=== PATIENT | female | born 1955 | race Two or more races ===

== ENCOUNTER 2016-10-10 03:52 | Emergency (ER) | payer BC, OTHER ==
[~2016-10-10] VITALS: Ht 153 cm; Wt 107.0 kg
[~2016-10-10 03:52] MED LIST: AMBIEN CR6.25 MG PO; HUMULIN R100 UNIT/1 IJ; KEFLEX500 MG PO; LISINOPRIL10 MG PO; MACROBID 100 M100 MG PO; PHENAZOPYRIDIN200 MG PO; PROTONIX40 MG PO; TIZANIDINE HCL4 MG PO; TRAMADOL HCL50 MG PO; VICODIN 5-5001 EACH PO
--- NOTE | 2016-10-10 04:26 | Emergency Room Report ---
History of Present Illness General Chief Complaint: Abdominal Pain Source: Patient Present Illness HPI This is a 61-year-old female with multiple abdominal surgery including hernia repair, bunionectomy, cholecystectomy. She presents with chief complaint of epigastric abdominal pain for last 2 days. Radiating to the back. She has nausea and vomiting. Worse with eating. Pain is 9/10. No diarrhea. She says she is constipated. Allergies: Coded Allergies: No Known Allergies (Verified Allergy, Unknown, 08/14/09) Patient History Past Medical History: see triage record, old chart reviewed Past Surgical History: appy, negro, other Pertinent Family History: none Social History: Denies: smoking Last Menstrual Period: 1991 Now: No Immunizations: other Reviewed Nursing Documentation: PMH: Agreed, PSxH: Agreed Nursing Documentation-PMH Past Medical History: No History, Except For Hx Hypertension: Yes Hx Diabetes: Yes Hx Neurological Problems: Yes Review of Systems Eye: Denies: blurred vision, eye pain ENT: Denies: ear pain, nose congestion, throat swelling Respiratory: Denies: cough, shortness of breath Cardiovascular: Denies: chest pain, palpitations Gastrointestinal: Reports: abdominal pain, nausea, vomiting, Denies: diarrhea Musculoskeletal: Denies: back pain, joint pain Skin: Denies: rash Neurological: Denies: headache, numbness Endocrine: Denies: increased thirst, increased urine Hematologic/Lymphatic: Denies: easy bruising All Other Systems: negative except mentioned in HPI Physical Exam Vital Signs Date Time Temp Pulse Resp B/P Pulse Ox O2 Delivery O2 Flow Rate FiO2 10/10/16 04:08 71 20 92 Room Air vitals unremarkable Sp02 EP Interpretation: reviewed, normal General Appearance: well appearing, no apparent distress, alert, obese Head: normocephalic, atraumatic Eyes: bilateral eye EOMI, bilateral eye PERRL ENT: hearing grossly normal, normal pharynx Neck: full range of motion, supple, no meningismus Respiratory: chest non-tender, lungs clear, normal breath sounds Cardiovascular #1: regular rate, rhythm, no murmur Gastrointestinal: no mass, no organomegaly, no bruit, non-distended, tenderness - Epigastric, decreased bowel sounds Musculoskeletal: back normal, gait/station normal, normal range of motion Psychiatric: mood/affect normal Skin: warm/dry Medical Decision Making Diagnostic Impression: Primary Impression: Abdominal pain Qualified Codes: R10.13 - Epigastric pain Additional Impression: Morbid obesity with BMI of 45.0-49.9, adult ER Course Patient present with abdominal pain. No evidence of any obstruction. Differential include peptic ulcer disease/gastritis/H. pylori infection. This may also be referred pain from degenerative disc disease. Lab Results Impression labs normal CT/MRI/US Diagnostic Results CT/MRI/US Diagnostic Results : Imaging Test Ordered: CT abdomen and pelvis Impression read by radiologist. No obstruction. Last Vital Signs Date Time Temp Pulse Resp B/P Pulse Ox O2 Delivery O2 Flow Rate FiO2 10/10/16 04:08 71 20 92 Room Air Status: improved Disposition: HOME, SELF-CARE Condition: Stable Scripts Omeprazole Magnesium (PRILOSEC OTC) 20 Mg Tablet. 20 MG ORAL DAILY, #30 TAB Prov: GUIDO PILLAI M.D. 10/10/16 Hydrocodone/Acetaminophen 5-325* (HYDROCODONE/ACETAMINOPHEN 5-325*) 1 Each Tablet 1 TAB ORAL Q6H Y for For Pain, #30 TAB 0 Refills Prov: GUIDO PILLAI M.D. 10/10/16 Patient Instructions: Abdominal Pain, Adult Additional Instructions: Followup with Your DrMarc in 2 to 3 days. Return if symptom worsen. GUIDO PILLAI M.D. October 10, 2016 04:26
[2016-10-10] MEDS ORDERED: HYDROmorphone 1mg/ml Carpuject IVP ONE ×2 (04:30→06:30)
[2016-10-10] MEDS ORDERED: Tubing IV Cassette IV ONE (04:44)
[2016-10-10 05:05] VITALS: BP 148/61
[2016-10-10 05:13] LABS: APPEARANCE,URINE CLEAR; BASOPHILS % (AUTO) 1.5 % (0.0-2.0); EOSINOPHILS % (AUTO) 1.7 % (0.0-3.0); KETONES,URINE NEGATIVE (NEGATIVE); LEUKOCYTE ESTERASE ,URINE 2+ (NEGATIVE); LYMPHOCYTES % (AUTO) 27.6 % (20.0-45.0); MEAN CORPUSCULAR HEMOGLOBIN 31.2 PG (27.0-31.0); MEAN CORPUSCULAR HGB CONC 33.5 G/DL (32.0-36.0); MEAN CORPUSCULAR VOLUME 93 FL (80-99); MONOCYTES % (AUTO) 5.7 % (1.0-10.0); NEUTROPHILS % (AUTO) 63.5 % (45.0-75.0); NITRITE,URINE NEGATIVE (NEGATIVE); PH,URINE 5 (4.5-8.0); PLATELET COUNT 324 K/UL (150-450); PROTEIN,URINE 1+ (NEGATIVE); RED BLOOD COUNT 4.09 M/UL (4.20-5.40); RED CELL DISTRIBUTION WIDTH 12.2 % (11.6-14.8); UROBILINOGEN,URINE NORMAL MG/DL (0.0-1.0); WHITE BLOOD COUNT 7.5 K/UL (4.8-10.8)
[2016-10-10 05:24] LABS: BACTERIA,URINE FEW /HPF; RBC,URINE 0-2 /HPF (0 - 2); SQUAMOUS EPITHELIAL CELL,UR FEW /LPF (NONE/OCC); WBC,URINE 15-20 /HPF (0 - 2)
[2016-10-10 05:28] LABS: INR 0.9 (0.9-1.1); PROTHROMBIN TIME 9.4 SEC (9.30-11.50)
[2016-10-10 05:32] LABS: ALANINE AMINOTRANSFERASE 30 U/L (3-33); ALBUMIN/GLOBULIN RATIO 1.4 (1.0-2.7); ANION GAP 14 (5-15); ASPARTATE AMINO TRANSFERASE 18 U/L (5-40); CARBON DIOXIDE 25 mEQ/L (20-30); CHLORIDE 102 mEQ/L (98-107); CREATININE 0.7 mg/dL (0.5-0.9); GLOMERULAR FILTRATION RATE > 60 mL/min (>60); HEMOLYSIS 2; LIPASE 29 U/L (< 60); POTASSIUM 3.8 mEQ/L (3.4-4.9); SODIUM 141 mEQ/L (135-145); TOTAL PROTEIN 6.6 g/dL (6.6-8.7)
[2016-10-10] MEDS ORDERED: LYRICA75 M1 ORAL (05:32)
[2016-10-10] MEDS ORDERED: PROPRANOLOL HCL40 MG ORAL (05:32)
[2016-10-10] MEDS ORDERED: TRAMADOL HCL50 MG ORAL (05:32)
[2016-10-10] MEDS ORDERED: GABAPENTIN300 MG ORAL (05:32)
[2016-10-10] MEDS ORDERED: JANUVIA25 MG ORAL (05:32)
[2016-10-10] MEDS ORDERED: PRISTIQ ER50 MG PO (05:32)
[2016-10-10] MEDS ORDERED: MORPHINE S10 MG/5 ML ORAL (05:32)
[2016-10-10] MEDS ORDERED: DICLOFENAC SODI25 MG ORAL (05:32)
[2016-10-10] MEDS ORDERED: LORAZEPAM1 MG ORAL (05:32)
[2016-10-10] MEDS ORDERED: HYDROCODON-ACE1 EA15 ORAL (06:27)
[2016-10-10] MEDS ORDERED: PRILOSEC OTC20 MG ORAL (06:27)
[2016-10-10] MEDS ORDERED: Pantoprazole Inj IVP ONE (06:30)
[2016-10-10 06:42] VITALS: BP 102/54
[2016-10-10 06:47] VITALS: BP 102/54
--- NOTE | 2016-10-10 11:07 | Diagnostic Imaging Report ---
Indication: Abdominal pain Technique: Continuous helical transaxial imaging of the abdomen and pelvis was obtained from the lung bases to the pubic symphysis during intravenous contrast administration. Coronal 2-D reformats were also obtained. Study obtained in a Siemens sensation [address] Total Dose length Product (DLP): [address] Dose Index Volume (CTDIvol): 20 mGy Comparison: None Findings: Minimal groundglass opacity/reticulation medial posterior right lung base. Gallbladder is absent. No abnormalities of the liver or spleen definitely identified. Small cyst noted in the kidneys bilaterally. Aorta is normal caliber. Calcifications anterior to the psoas muscle likely phleboliths. Small bilateral inguinal hernias are present. The urinary bladder is nondistended. No free fluid, free air or evidence of bowel obstruction. Accessory spleen noted. This slightly linear hypodensity in the left kidney nonspecific. Uterus is absent. Appendix is not identified. No secondary signs of appendicitis identified. Impression: No acute findings identified. Bilateral renal cysts. Other renal hypodensities are too small to characterize. Status post hysterectomy Status post cholecystectomy. Small bilateral inguinal hernias containing fat. Dr. chandler has communicated the preliminary results to the Emergency Department. There are no significant discrepancies. The CT scanner at [facility] is accredited by the [employer] and the scans are performed using dose optimization techniques as appropriate to a performed exam including Automatic Exposure control.
== END 2016-10-10 06:45 | disposition home or self-care (01) ==
LOC: EMR 04:25
DX: R10.13 Epigastric pain (principal); R11.2 Nausea with vomiting, unspecified; E66.01 Morbid (severe) obesity due to excess calories; Z68.42 Body mass index [BMI] 45.0-49.9, adult; K59.00 Constipation, unspecified; E11.9 Type 2 diabetes mellitus without complications; I10 Essential (primary) hypertension
CPT/HCPCS: 36415; 74177; 80053; 81003; 83690; 85025; 85610; 85730; 87086; 96360; 96374; 96375; 99284; C9113; J1170; J2405; Q9967

== ENCOUNTER 2016-12-15 16:54 | Outpatient (CLI) | payer OTHER ==
[~2016-12-15 16:54] MED LIST changes: +DICLOFENAC SODI25 MG ORAL; +GABAPENTIN300 MG ORAL; +HYDROCODON-ACE1 EA15 ORAL; +JANUVIA25 MG ORAL; +LORAZEPAM1 MG ORAL; +LYRICA75 M1 ORAL; +MORPHINE S10 MG/5 ML ORAL; +PRILOSEC OTC20 MG ORAL; +PRISTIQ ER50 MG PO; +PROPRANOLOL HCL40 MG ORAL; +TRAMADOL HCL50 MG ORAL
--- NOTE | 2016-12-16 10:57 | Diagnostic Imaging Report ---
Indication: Neck pain Technique: MRI examination of the cervical spine was performed in a 1.5 [place] magnet. Sequences obtained include sagittal and axial T1 and T2 fast spin echo, and sagittal STIR. No IV gadolinium was given Comparison: none Findings: The spinal cord appears normal within the cervical spine. There is no Chiari malformation. There is considerable artifact in the upper part of the thoracic spine. Magnetic susceptibility artifact emanating from the anterior aspects of the vertebral bodies at C5, C6 and C7 associated with anterior fusion hardware. There is apparent interbody fusion of C5-6. The C6-7 disc is still visualized. There is no evidence of central spinal stenosis or evidence of neural foraminal narrowing. Alignment of the cervical spine appears normal. No epidural or other abnormal fluid collections or soft tissue swelling identified. Bone marrow signal as visualized appears normal. Impression: Anterior cervical fusion C5-C7.
--- NOTE | 2016-12-16 12:09 | Diagnostic Imaging Report ---
Indication: CVA Technique: 2-D [id number] of the extracranial carotid arteries below the skull base performed. No gadolinium given. Comparison: None Findings: There is considerable motion related image degradation resulting in a nondiagnostic exam. The proximal portions of both internal carotid arteries are poorly demonstrated and appear to show only patchy flow related enhancement. Whether these areas represent high grade stenoses or artifact is anyone's guess. Similarly, there are portions of the common carotid arteries that show no flow. Again this could be artifactual. Images of both vertebral arteries are equally degraded. In general, none of the proximal aspects of the vertebral arteries or the common carotid arteries are well demonstrated. Impression: Nondiagnostic study of the extracranial carotid or vertebral arteries. Further evaluation with duplex Doppler carotid ultrasound and/or CTA is recommended.
== END 2016-12-15 18:54 | disposition home or self-care (01) ==
LOC: MRI 16:54
DX: M54.2 Cervicalgia (principal); M43.22 Fusion of spine, cervical region
CPT/HCPCS: 70547; 72141

== ENCOUNTER 2017-05-21 08:44 | Emergency (ER) | payer OTHER ==
[~2017-05-21] VITALS: Ht 152.4 cm; Wt 108.9 kg
[2017-05-21 08:51] VITALS: BP 141/77
[2017-05-21] MEDS ORDERED: SUMATRIPTAN20 MG PO (09:00)
[2017-05-21] MEDS ORDERED: VITAMIN D1000 UNI1 ORAL (09:00)
[2017-05-21] MEDS ORDERED: [UNRECOGNIZED DRUG - OTHER] (09:00)
[2017-05-21] MEDS ORDERED: NORCO 5-325 TA1 EAC1 ORAL (09:00)
[2017-05-21] MEDS ORDERED: Sodium Chloride 500ML 500 ML IV ONE (09:06)
[2017-05-21] MEDS ORDERED: Ketorolac 30mg Inj IV ONE (09:15)
[2017-05-21] MEDS ORDERED: MICARDIS80 MG ORAL (09:32)
[2017-05-21] MEDS ORDERED: HYDROCHLOROTHIA25 MG ORAL (09:32)
[2017-05-21] MEDS ORDERED: CARAFATE1 G1 ORAL (09:32)
[2017-05-21] MEDS ORDERED: NOVOLIN N100 UNIT/1 SUBQ (09:32)
[2017-05-21] MEDS ORDERED: PANTOPRAZOLE SO40 MG ORAL (09:32)
[2017-05-21] MEDS ORDERED: DICYCLOMINE HCL10 MG PO (09:32)
[2017-05-21] MEDS ORDERED: REGULAR INSULIN SS (09:32)
[2017-05-21] MEDS ORDERED: JANUVIA25 MG ORAL (09:32)
--- NOTE | 2017-05-21 09:40 | Emergency Room Report ---
History of Present Illness General Chief Complaint: Vomiting Source: Patient Present Illness HPI Patient presents with reports of vomiting She reports diffuse bodyaches Patient had recent right-sided shoulder surgery Sounds to be laparoscopic rotator cuff At any other facility about 10 days ago There was apparently some complications the patient was in the hospital for about 4 days with respiratory discomfort Patient had general anesthesia At this time patient reports that she had been doing better 3 days ago she began having increased nausea and vomiting denies any abdominal pain specifically denies any obvious fevers denies any chest pain or shortness of breath She has not been able to take her pain medication or other medication secondary to the vomiting Patient has had a mild cough since discharge Allergies: Coded Allergies: No Known Allergies (Verified Allergy, Unknown, 08/14/09) Patient History Past Medical History: see triage record Pertinent Family History: none Reviewed Nursing Documentation: PMH: Agreed, PSxH: Agreed Nursing Documentation-PMH Hx Hypertension: Yes Hx Diabetes: Yes Hx Gastrointestinal Problems: Yes - gastritis, gall bladder removal Hx Neurological Problems: Yes - Fibromyalgia Hx Cerebrovascular Accident: Yes - 2006, hemiplegia left side Review of Systems All Other Systems: negative except mentioned in HPI Physical Exam Vital Signs Date Time Temp Pulse Resp B/P (MAP) Pulse Ox O2 Delivery O2 Flow Rate FiO2 05/21/17 08:45 98.4 91 24 124/78 100 Room Air Sp02 EP Interpretation: reviewed, normal General Appearance: no apparent distress Head: normocephalic, atraumatic Eyes: bilateral eye PERRL, bilateral eye EOMI ENT: hearing grossly normal, normal pharynx, TMs + canals normal, uvula midline Neck: full range of motion, supple, no meningismus, no bony tend Respiratory: lungs clear, normal breath sounds, no rhonchi, no respiratory distress, no retraction, no accessory muscle use Cardiovascular #1: normal peripheral pulses, regular rate, rhythm, no edema, no gallop, no JVD, no murmur Gastrointestinal: normal bowel sounds, non tender, soft, no mass, no organomegaly, non-distended, no guarding, no hernia, no pulsatile mass, no rebound Genitourinary: no CVA tenderness Musculoskeletal: other - Sutures in place in the right upper shoulder likely from laparoscopic surgery, no erythema or edema no obvious fluctuance, Neurologic: oriented x3, responsive, indexer III-XII nml as tested, motor strength/ tone normal, sensory intact Psychiatric: mood/affect normal Skin: normal color, no rash, warm/dry, palpation normal Lymphatic: normal inspection, no adenopathy Medical Decision Making Diagnostic Impression: Primary Impression: Vomiting Additional Impression: Viral syndrome ER Course Patient is complex with multiple differentials Requiring blood work and imaging Patient had recent major procedure including general anesthesia Blood work at this time reveals a low white blood for count Possibly in line with a viral syndrome Patient does not appear septic or toxic Has done significantly better with acute intervention X-ray was also normal In discussion regarding possible inpatient versus outpatient patient states that she would prefer to have outpatient initial trial and that she feels significantly better Patient will return with any changes or concerns Labs Test 05/21/17 09:34 05/21/17 10:10 05/21/17 11:07 Sodium Level 138 MMOL/L (136-145) Potassium Level 3.7 MMOL/L (3.5-5.1) Chloride Level 102 MMOL/L (98-107) Carbon Dioxide Level 27 MMOL/L (21-32) Anion Gap 9 mmol/L (5-15) Blood Urea Nitrogen 6 mg/dL (7-18) Creatinine 0.6 MG/DL (0.55-1.30) Estimat Glomerular Filtration Rate > 60 mL/min (>60) Glucose Level 300 MG/DL (74-106) Calcium Level 8.0 MG/DL (8.5-10.1) Total Bilirubin 0.8 MG/DL (0.2-1.0) Aspartate Amino Transf (AST/SGOT) 73 U/L (15-37) Alanine Aminotransferase (ALT/SGPT) 62 U/L (12-78) Alkaline Phosphatase 87 U/L (46-116) Total Creatine Kinase 93 U/L (26-308) Creatine Kinase MB < 0.5 NG/ML (0.0-3.6) Creatine Kinase MB Relative Index 0.5 Troponin I 0.012 ng/mL (0.000-0.056) Total Protein 7.3 G/DL (6.4-8.2) Albumin 3.5 G/DL (3.4-5.0) Globulin 3.8 g/dL Albumin/Globulin Ratio 0.9 (1.0-2.7) Lipase 87 U/L (73-393) White Blood Count 3.2 K/UL (4.8-10.8) Red Blood Count 4.49 M/UL (4.20-5.40) Hemoglobin 12.9 G/DL (12.0-16.0) Hematocrit 40.6 % (37.0-47.0) Mean Corpuscular Volume 91 FL (80-99) Mean Corpuscular Hemoglobin 28.7 PG (27.0-31.0) Mean Corpuscular Hemoglobin Concent 31.6 G/DL (32.0-36.0) Red Cell Distribution Width 13.7 % (11.6-14.8) Platelet Count 330 K/UL (150-450) Mean Platelet Volume 6.3 FL (6.5-10.1) Neutrophils (%) (Auto) % (45.0-75.0) Lymphocytes (%) (Auto) % (20.0-45.0) Monocytes (%) (Auto) % (1.0-10.0) Eosinophils (%) (Auto) % (0.0-3.0) Basophils (%) (Auto) % (0.0-2.0) Differential Total Cells Counted 100 Neutrophils % (Manual) 60 % (45-75) Lymphocytes % (Manual) 25 % (20-45) Monocytes % (Manual) 9 % (1-10) Eosinophils % (Manual) 4 % (0-3) Basophils % (Manual) 2 % (0-2) Band Neutrophils 0 % (0-8) Platelet Estimate Adequate Platelet Morphology Normal Red Blood Cell Morphology Normal Urine Color Yellow Urine Appearance Clear Urine pH 7 (4.5-8.0) Urine Specific Marble 1.020 (1.005-1.035) Urine Protein 1+ (NEGATIVE) Urine Glucose (UA) 4+ (NEGATIVE) Urine Ketones 4+ (NEGATIVE) Urine Occult Blood Negative (NEGATIVE) Urine Nitrite Negative (NEGATIVE) Urine Bilirubin Negative (NEGATIVE) Urine Urobilinogen Normal MG/DL (0.0-1.0) Urine Leukocyte Esterase 1+ (NEGATIVE) Urine RBC 0-2 /HPF (0 - 2) Urine WBC 2-4 /HPF (0 - 2) Urine Squamous Epithelial Cells Few /LPF (NONE/OCC) Urine Amorphous Sediment Few /LPF (NONE) Urine Bacteria Few /HPF (NONE) Rhythm Strip Diag. Results EP Interpretation: yes Rate: 77 Rhythm: NSR, no PVC's, no ectopy Chest X-Ray Diagnostic Results Chest X-Ray Diagnostic Results : Chest X-Ray Ordered: Yes # of Views/Limited/Complete: 1 View Indication: Chest Pain EP Interpretation: Yes Interpretation: no consolidation, no effusion, no pneumothorax, no acute cardiopulmonary disease Impression: No acute disease Electronically Signed by: Deanna oBwman DO Last Vital Signs Date Time Temp Pulse Resp B/P (MAP) Pulse Ox O2 Delivery O2 Flow Rate FiO2 05/21/17 08:45 98.4 91 24 124/78 100 Room Air Status: improved Disposition: HOME, SELF-CARE Condition: Improved Scripts Metoclopramide Hcl* (REGLAN*) 10 Mg Tablet 10 MG ORAL BID, #12 TAB Prov: DEANNA BOWMAN D.O. 05/21/17 Referrals: [facility],REFERRING (PCP) Additional Instructions: Patient is provided with the discharge instructions notified to follow up with primary doctor in the next 2-3 days otherwise return to the er with any worsening symptoms. Please note that this report is being documented using [employer] technology. This can lead to erroneous entry secondary to incorrect interpretation by the dictating instrument. DEANNA BOWMAN D.O. May 21, 2017 09:40
--- NOTE | 2017-05-21 09:43 | Diagnostic Imaging Report ---
Indication: Shortness of breath Technique: XRAY Chest 1v Comparison: 03/04/2012 Findings: Heart size and mediastinal contours are within normal limits given technique. There is no focal consolidation, pneumothorax or pleural effusion. Degenerative changes noted in the thoracic spine. Osseous structures demonstrate no acute abnormality. Impression: No radiographic evidence of acute cardiopulmonary disease.
[2017-05-21 10:18] LABS: ANION GAP 9 mmol/L (5-15); CARBON DIOXIDE 27 MMOL/L (21-32); CHLORIDE 102 MMOL/L (98-107); CREATININE 0.6 MG/DL (0.55-1.30); GLOMERULAR FILTRATION RATE > 60 mL/min (>60); POTASSIUM 3.7 MMOL/L (3.5-5.1); SODIUM 138 MMOL/L (136-145)
[2017-05-21 10:23] LABS: MEAN CORPUSCULAR HEMOGLOBIN 28.7 PG (27.0-31.0); MEAN CORPUSCULAR HGB CONC 31.6 G/DL (32.0-36.0); MEAN CORPUSCULAR VOLUME 91 FL (80-99); MEAN PLATELET VOLUME 6.3 FL (6.5-10.1); PLATELET COUNT 330 K/UL (150-450); RED BLOOD COUNT 4.49 M/UL (4.20-5.40); RED CELL DISTRIBUTION WIDTH 13.7 % (11.6-14.8); WHITE BLOOD COUNT 3.2 K/UL (4.8-10.8)
[2017-05-21 10:28] VITALS: BP 147/63
[2017-05-21 10:31] LABS: ALANINE AMINOTRANSFERASE 62 U/L (12-78); ALBUMIN/GLOBULIN RATIO 0.9 (1.0-2.7); ASPARTATE AMINO TRANSFERASE 73 U/L (15-37); CKMB < 0.5 NG/ML (0.0-3.6); LIPASE 87 U/L (73-393); TOTAL PROTEIN 7.3 G/DL (6.4-8.2)
[2017-05-21 10:51] LABS: BAND NEUTROPHILS % (MANUAL) 0 % (0-8); BASOPHILS % (MANUAL) 2 % (0-2); EOSINOPHILS % (MANUAL) 4 % (0-3); LYMPHOCYTES % (MANUAL) 25 % (20-45); NEUTROPHILS % (MANUAL) 60 % (45-75); PLATELET ESTIMATE ADEQUATE; PLATELET MORPHOLOGY NORMAL; TOTAL CELLS COUNTED 100
[2017-05-21 11:21] LABS: APPEARANCE,URINE CLEAR; KETONES,URINE 4+ (NEGATIVE); LEUKOCYTE ESTERASE ,URINE 1+ (NEGATIVE); NITRITE,URINE NEGATIVE (NEGATIVE); PH,URINE 7 (4.5-8.0); PROTEIN,URINE 1+ (NEGATIVE); UROBILINOGEN,URINE NORMAL MG/DL (0.0-1.0)
[2017-05-21 11:41] LABS: AMORPHOUS SEDIMENT,UR FEW /LPF; BACTERIA,URINE FEW /HPF; RBC,URINE 0-2 /HPF (0 - 2); SQUAMOUS EPITHELIAL CELL,UR FEW /LPF (NONE/OCC)
[2017-05-21 12:32] VITALS: BP 156/94
[2017-05-21] MEDS ORDERED: REGLAN10 MG ORAL (12:38)
[2017-05-21 13:00] VITALS: BP 156/94
--- NOTE | 2017-05-22 19:16 | Cardiology Report ---
APPROVED REPORT EKG Measurement Heart [id number] Sinus tachycardia Otherwise normal ECG
== END 2017-05-21 13:00 | disposition home or self-care (01) ==
LOC: EMR 09:23
DX: R11.10 Vomiting, unspecified (principal); B34.9 Viral infection, unspecified; I10 Essential (primary) hypertension; E11.9 Type 2 diabetes mellitus without complications; Z90.49 Acquired absence of other specified parts of digestive tract; M79.7 Fibromyalgia; G81.94 Hemiplegia, unspecified affecting left nondominant side
CPT/HCPCS: 36415; 71010; 80053; 81003; 82550; 82553; 83690; 84484; 85007; 85025; 87040; 93005; 96361; 96374; 96375; 99284; J1885; J2405; J7040

== ENCOUNTER 2017-08-23 20:02 | Emergency (ER) | payer OTHER ==
[~2017-08-23] VITALS: Ht 152.4 cm; Wt 110.2 kg
[~2017-08-23 20:02] MED LIST changes: +CARAFATE1 G1 ORAL; +DICYCLOMINE HCL10 MG PO; +HYDROCHLOROTHIA25 MG ORAL; +MICARDIS80 MG ORAL; +NORCO 5-325 TA1 EAC1 ORAL; +NOVOLIN N100 UNIT/1 SUBQ; +PANTOPRAZOLE SO40 MG ORAL; +REGLAN10 MG ORAL; +REGULAR INSULIN SS; +SUMATRIPTAN20 MG PO; +VITAMIN D1000 UNI1 ORAL; +[UNRECOGNIZED DRUG - OTHER]
[2017-08-23 21:38] LABS: APPEARANCE,URINE CLEAR; BILIRUBIN, URINE NEGATIVE (NEGATIVE); COLOR,URINE PALE YELLOW; GLUCOSE, URINE (UA) NEGATIVE (NEGATIVE); KETONES,URINE NEGATIVE (NEGATIVE); LEUKOCYTE ESTERASE ,URINE 2+ (NEGATIVE); NITRITE,URINE NEGATIVE (NEGATIVE); PH,URINE 5 (4.5-8.0); PROTEIN,URINE NEGATIVE (NEGATIVE); UROBILINOGEN,URINE NORMAL MG/DL (0.0-1.0)
[2017-08-23] MEDS ORDERED: Albuterol ud Inhalation HHN ONE (22:00)
[2017-08-23] MEDS ORDERED: Ipratropium 0.02% Inh Soln 2.5ml UD HHN ONE (22:00)
--- NOTE | 2017-08-23 22:12 | Emergency Room Report ---
History of Present Illness General Chief Complaint: Female Urogenital Problems Source: Patient (Kris Bhatt MD) Source: Patient (Harley Amin M.D.) Present Illness HPI 61-year-old female presents ED for evaluation. Patient presenting with flank pain. Radiating to groin. She states approximately 2 weeks ago she was seen by her PMD for UTI. Was prescribed Bactrim and states she is completely prescription but symptoms persist. Notes burning urination. Pain is dull, 5 out of 10, radiating. Denies fevers or chills. Denies nausea or vomiting. Denies chest pain or shortness of breath. No other aggravating relieving factors. Denies any other associated symptoms (Kris Bhatt MD) Allergies: Coded Allergies: No Known Allergies (Verified Allergy, Unknown, 08/14/09) Patient History Past Medical History: HTN, GERD, CVA/TIA Past Surgical History: negro Social History: Denies: smoking, alcohol use, drug use Last Menstrual Period: none Now: No Immunizations: UTD Reviewed Nursing Documentation: PMH: Agreed; PSxH: Agreed (Kris Bhatt MD) Past Medical History: see triage record Past Surgical History: none Pertinent Family History: none Reviewed Nursing Documentation: PMH: Agreed; PSxH: Agreed (Harley Amin M.D. ) Nursing Documentation-PMH Hx Hypertension: Yes Hx Diabetes: Yes Hx Gastrointestinal Problems: Yes - gastritis, gall bladder removal Hx Neurological Problems: Yes - Fibromyalgia Hx Cerebrovascular Accident: Yes - 2006, hemiplegia left side (Kris Bhatt MD) Review of Systems All Other Systems: negative except mentioned in HPI (Kris Bhatt MD) Physical Exam Vital Signs Date Time Temp Pulse Resp B/P (MAP) Pulse Ox O2 Delivery O2 Flow Rate FiO2 08/23/17 20:20 97.5 85 18 129/83 99 Room Air 97.5 Sp02 EP Interpretation: reviewed, normal General Appearance: no apparent distress, alert, GCS 15, non-toxic, obese Head: normocephalic, atraumatic Eyes: bilateral eye normal inspection, bilateral eye PERRL ENT: hearing grossly normal, normal pharynx, no angioedema, normal voice Neck: full range of motion, supple/symm/no masses Respiratory: chest non-tender, lungs clear, normal breath sounds, speaking full sentences Cardiovascular #1: regular rate, rhythm, no edema Cardiovascular #2: 2+ carotid (R), 2+ carotid (L), 2+ radial (R), 2+ radial (L) , 2+ dorsalis pedis (R), 2+ dorsalis pedis (L) Gastrointestinal: normal bowel sounds, non tender, soft, non-distended, no guarding, no rebound Rectal: deferred Genitourinary: normal inspection, CVA tenderness (R), CVA tenderness (L) Musculoskeletal: back normal, gait/station normal, normal range of motion, non- tender Neurologic: alert, oriented x3, responsive, motor strength/tone normal, sensory intact, speech normal Psychiatric: judgement/insight normal, memory normal, mood/affect normal, no suicidal/homicidal ideation Reflexes: 3+ bicep (R), 3+ bicep (L), 3+ tricep (R), 3+ tricep (L), 3+ knee (R) , 3+ knee (L) Skin: normal color, no rash, warm/dry, well hydrated Lymphatic: no adenopathy (Kris Bhatt MD) Medical Decision Making Diagnostic Impression: Primary Impression: Dysuria ER Course I received signout from Dr. Bhatt 61-year-old female, recently had a UTI, continues to have some dysuria/burning on urination. No fever no chills. Has intermittent flank pain. States that she does have a history of kidney stones in the past. Patient has been awake and alert, calm, not in any pain, vital signs are normal. No nausea no vomiting. No hematuria. Dry CT performed, no acute abnormalities noted Repeat abdominal exam is soft and nontender Showed decision-making had with the patient and her daughter, decided to discharge patient with very strict return precautions. Was told to come back to the emergency room if she experiences worsening pain, nausea, vomiting, inability to eat or drink, fever or chills. Otherwise if urine culture is positive, they are told that they were related get a call from us Patient will be followed up with her primary care doctor in a week (Harley Amin M.D.) CT/MRI/US Diagnostic Results CT/MRI/US Diagnostic Results : Imaging Test Ordered: CT abdo pelvis Impression CT ABDOMEN & PELVIS Without Contrast: Minimal nodular infiltrate in the lingula and left lower lobe. Appendix not identified. No colitis or bowel obstruction. Fatty liver. Cholecystectomy. Hysterectomy. (Harley Amin M.D.) Last Vital Signs Date Time Temp Pulse Resp B/P (MAP) Pulse Ox O2 Delivery O2 Flow Rate FiO2 08/23/17 20:20 97.5 85 18 129/83 99 Room Air 97.5 (Kris Bhatt MD) Disposition: HOME, SELF-CARE Condition: Improved Kris Bhatt MD Aug 23, 2017 22:12 Harley Amin M.D. Aug 23, 2017 23:32
[2017-08-23 23:45] VITALS: BP 93/50
--- NOTE | 2017-08-24 09:26 | Diagnostic Imaging Report ---
Indication: Abdominal pain Technique: Spiral acquisitions obtained through the abdomen and pelvis. No oral contrast utilized, per emergency room physician request No IV contrast utilized, emergency room physician request.. Multiplanar reconstructions were generated. Total dose length product 1034 mGycm. CTDIvol(s) 19 mGy. Dose reduction achieved using automated exposure control Comparison: 01/09/2011 Findings: 6 the appendix is not visualized, but no findings to suggest acute appendicitis are evident. There are scattered small colonic diverticula. No evidence of diverticulitis. No small bowel distention. No free or loculated intraperitoneal air or fluid is evident. Distal esophagus, stomach, duodenum are unremarkable. The gallbladder is surgically absent. No biliary ductal dilatation. Lack of IV contrast limits assessment of the solid organs. The liver is diffusely mildly hypoattenuating. No focal abnormality. The pancreas is unremarkable. The spleen demonstrates an accessory splenule, is otherwise unremarkable. The adrenals, kidneys are unremarkable. The uterus is absent, presumably postsurgically. Gas bubbles are seen within the anterior abdominal wall subcutaneous fat, likely reflecting recent injections. The included lung bases demonstrate some scattered irregular opacities in the lateral left lower lobe periphery. The bones demonstrate mild degenerative proliferative changes of the lumbar spine. Impression: No acute process Small focal nodule infiltrate in the left lung base Fatty liver Evidence of prior cholecystectomy and hysterectomy -Agrees stat rad The CT scanner at [facility] is accredited by the [employer] and the scans are performed using protocols designed to limit radiation exposure to as low as reasonably achievable to attain images of sufficient resolution adequate for diagnostic evaluation.
== END 2017-08-23 23:45 | disposition home or self-care (01) ==
LOC: EMR 20:56
DX: R30.0 Dysuria (principal); R10.9 Unspecified abdominal pain; I10 Essential (primary) hypertension; E11.9 Type 2 diabetes mellitus without complications; Z87.19 Personal history of other diseases of the digestive system; K76.0 Fatty (change of) liver, not elsewhere classified; Z87.440 Personal history of urinary (tract) infections; Z87.442 Personal history of urinary calculi; Z90.49 Acquired absence of other specified parts of digestive tract; Z90.710 Acquired absence of both cervix and uterus
CPT/HCPCS: 74176; 81003; 96374; 99284

== ENCOUNTER 2018-10-05 07:26 | Emergency (ER) | payer OTHER ==
[~2018-10-05] VITALS: Ht 152.4 cm; Wt 107.0 kg
[2018-10-05 07:45] VITALS: BP 121/103
[2018-10-05] MEDS ORDERED: ZANTAC150 MG ORAL (07:54)
[2018-10-05] MEDS ORDERED: ASPIR 8181 MG ORAL (07:54)
[2018-10-05] MEDS ORDERED: CYMBALTA30 MG ORAL (07:54)
[2018-10-05] MEDS ORDERED: BUPROPION HCL100 M1 ORAL (07:54)
[2018-10-05 08:39] LABS: APPEARANCE,URINE CLEAR; BILIRUBIN, URINE NEGATIVE (NEGATIVE); COLOR,URINE PALE YELLOW; GLUCOSE, URINE (UA) 4+ (NEGATIVE); HEMATOCRIT 39.5 % (37.0-47.0); HEMOGLOBIN 13.7 G/DL (12.0-16.0); KETONES,URINE 1+ (NEGATIVE); LEUKOCYTE ESTERASE ,URINE 2+ (NEGATIVE); LYMPHOCYTES % (AUTO) 21.9 % (20.0-45.0); MEAN CORPUSCULAR VOLUME 87 FL (80-99); MONOCYTES % (AUTO) 3.8 % (1.0-10.0); NEUTROPHILS % (AUTO) 72.3 % (45.0-75.0); NITRITE,URINE NEGATIVE (NEGATIVE); PH,URINE 5 (4.5-8.0); PLATELET COUNT 322 K/UL (150-450); PROTEIN,URINE NEGATIVE (NEGATIVE); RED BLOOD COUNT 4.51 M/UL (4.20-5.40); RED CELL DISTRIBUTION WIDTH 11.5 % (11.6-14.8); UROBILINOGEN,URINE NORMAL MG/DL (0.0-1.0); WHITE BLOOD COUNT 8.2 K/UL (4.8-10.8)
[2018-10-05] MEDS ORDERED: Morphine Sulfate 4mg/ml Inj (IV USE ONLY) IVP ONE ×2 (08:45→09:15)
[2018-10-05 08:51] LABS: ANION GAP 11 mmol/L (5-15); BLOOD UREA NITROGEN 23 mg/dL (7-18); CALCIUM 8.8 MG/DL (8.5-10.1); CARBON DIOXIDE 24 MMOL/L (21-32); CHLORIDE 103 MMOL/L (98-107); POTASSIUM 3.4 MMOL/L (3.5-5.1); SODIUM 138 MMOL/L (136-145)
[2018-10-05 08:56] LABS: ALANINE AMINOTRANSFERASE 89 U/L (12-78); ALBUMIN 3.5 G/DL (3.4-5.0); ALKALINE PHOSPHATASE 97 U/L (46-116); ASPARTATE AMINO TRANSFERASE 68 U/L (15-37); BILIRUBIN,TOTAL 0.3 MG/DL (0.2-1.0)
--- NOTE | 2018-10-05 09:06 | Emergency Room Report ---
History of Present Illness General Chief Complaint: Lower Back Pain or Injury Source: Patient Present Illness HPI The patient states that she has a history of chronic low back pain. She has chronic arthritis. She is undergone cervical spinal fusion. She has had 2 rotator cuff surgeries of her shoulders. She also has bilateral knee arthritis but is not a surgical candidate secondary to her history of CVA x2 and DC x2. She states that she normally manages her back pain at home with [place], gabapentin and baclofen. She states that over the past 3 days she has been using his medications without relief. She states that the pain is in her low back midline. She denies weakness. She denies radiation of the pain. She denies tingling or numbness. She denies loss of bowel or bladder control. She denies recent illness. She denies fever or chills. She denies nausea or vomiting. She denies dysuria or hematuria. She has no other complaints. Allergies: Coded Allergies: No Known Allergies (Verified Allergy, Unknown, 08/14/09) Patient History Past Medical History: see triage record, DM, HTN, DC, CAD, CVA/TIA Past Surgical History: appy, negro, hysterectomy, other - Bilateral Rotator cuff repair. Cervical spinal fusion. Social History: Denies: smoking, alcohol use, drug use Now: No Reviewed Nursing Documentation: PMH: Agreed; PSxH: Agreed Nursing Documentation-PMH Past Medical History: No History, Except For Hx Hypertension: Yes Hx Diabetes: Yes Hx Gastrointestinal Problems: Yes - gastritis, gall bladder removal Hx Neurological Problems: Yes - Fibromyalgia Hx Cerebrovascular Accident: Yes - 2006, hemiplegia left side Review of Systems All Other Systems: negative except mentioned in HPI Physical Exam Vital Signs Date Time Temp Pulse Resp B/P (MAP) Pulse Ox O2 Delivery O2 Flow Rate FiO2 10/05/18 07:39 98.4 94 20 97 Room Air 10/05/18 07:45 121/103 Sp02 EP Interpretation: reviewed, normal General Appearance: no apparent distress, alert, GCS 15, non-toxic Head: normocephalic, atraumatic Eyes: bilateral eye normal inspection, bilateral eye PERRL ENT: hearing grossly normal, normal pharynx, no angioedema, normal voice Neck: full range of motion, supple/symm/no masses Respiratory: chest non-tender, lungs clear, normal breath sounds, no respiratory distress, no retraction, no accessory muscle use, speaking full sentences Cardiovascular #1: regular rate, rhythm, no edema Gastrointestinal: normal bowel sounds, non tender, soft, non-distended, no guarding, no rebound Rectal: deferred Musculoskeletal: normal range of motion, tender - TTP along the L-spine diffusely Neurologic: alert, oriented x3, responsive, motor strength/tone normal, sensory intact, speech normal Psychiatric: judgement/insight normal, memory normal, mood/affect normal, no suicidal/homicidal ideation Skin: normal color, no rash, warm/dry, well hydrated Medical Decision Making Diagnostic Impression: Primary Impression: Low back pain Additional Impression: UTI (urinary tract infection) ER Course This patient has a clinical presentation consistent with chronic low back pain. There are no red flags on physical exam or history that would make me concerned for underlying fracture. Therefore, I do not feel that I need to obtain imaging studies. Further, the patient has had a recent MRI within the past few months. The patient was identified to have disc bulges. There is no history of physical exam findings that would make me concerned for cauda equina. There is no evidence of compartment syndrome. There is no neurologic deficit. The patient was instructed on supportive home measures. Patient's urinalysis was slightly positive. The patient's blood sugar was over 300 but is known diabetic. The patient was educated on the importance of diabetes control. As a precaution, I will go ahead and place the patient on a course of antibiotics for urinary tract infection. No emergency medical condition was identified. Instructed to follow-up with her primary care physician for further pain management. The patient was given return precautions and followup instructions. Laboratory Tests Test 10/05/18 08:25 White Blood Count 8.2 K/UL (4.8-10.8) Red Blood Count 4.51 M/UL (4.20-5.40) Hemoglobin 13.7 G/DL (12.0-16.0) Hematocrit 39.5 % (37.0-47.0) Mean Corpuscular Volume 87 FL (80-99) Mean Corpuscular Hemoglobin 30.4 PG (27.0-31.0) Mean Corpuscular Hemoglobin Concent 34.8 G/DL (32.0-36.0) Red Cell Distribution Width 11.5 % (11.6-14.8) L Platelet Count 322 K/UL (150-450) Mean Platelet Volume 6.8 FL (6.5-10.1) Neutrophils (%) (Auto) 72.3 % (45.0-75.0) Lymphocytes (%) (Auto) 21.9 % (20.0-45.0) Monocytes (%) (Auto) 3.8 % (1.0-10.0) Eosinophils (%) (Auto) 1.0 % (0.0-3.0) Basophils (%) (Auto) 1.0 % (0.0-2.0) Urine Color Pale yellow Urine Appearance Clear Urine pH 5 (4.5-8.0) Urine Specific [place] 1.015 (1.005-1.035) Urine Protein Negative (NEGATIVE) Urine Glucose (UA) 4+ (NEGATIVE) H Urine Ketones 1+ (NEGATIVE) H Urine Blood Negative (NEGATIVE) Urine Nitrite Negative (NEGATIVE) Urine Bilirubin Negative (NEGATIVE) Urine Urobilinogen Normal MG/DL (0.0-1.0) Urine Leukocyte Esterase 2+ (NEGATIVE) H Urine RBC 0 /HPF (0 - 2) Urine WBC 5-10 /HPF (0 - 2) H Urine Squamous Epithelial Cells Few /LPF (NONE/OCC) Urine Bacteria Few /HPF (NONE) Sodium Level 138 MMOL/L (136-145) Potassium Level 3.4 MMOL/L (3.5-5.1) L Chloride Level 103 MMOL/L (98-107) Carbon Dioxide Level 24 MMOL/L (21-32) Anion Gap 11 mmol/L (5-15) Blood Urea Nitrogen 23 mg/dL (7-18) H Creatinine 1.0 MG/DL (0.55-1.30) Estimate Glomerular Filtration Rate 56.4 mL/min (>60) Glucose Level 328 MG/DL (74-106) H Calcium Level 8.8 MG/DL (8.5-10.1) Total Bilirubin 0.3 MG/DL (0.2-1.0) Aspartate Amino Transferase (AST) 68 U/L (15-37) H Alanine Aminotransferase (ALT) 89 U/L (12-78) H Alkaline Phosphatase 97 U/L (46-116) Total Protein 7.0 G/DL (6.4-8.2) Albumin 3.5 G/DL (3.4-5.0) Globulin 3.5 g/dL Albumin/Globulin Ratio 1.0 (1.0-2.7) Lipase 148 U/L (73-393) Last Vital Signs Date Time Temp Pulse Resp B/P (MAP) Pulse Ox O2 Delivery O2 Flow Rate FiO2 10/05/18 07:45 98.4 94 20 121/103 97 Room Air Status: improved Disposition: HOME, SELF-CARE Condition: Improved Referrals: NON PHYSICIAN (PCP) Patient Instructions: Back Pain, Adult, Low Back Sprain With Rehab-Sports[facility] Colleen Naranjo DO October 05, 2018 09:06
[2018-10-05] MEDS ORDERED: LIDODERM700 M1 TOPIC (09:07)
[2018-10-05] MEDS ORDERED: NITROFURANTOIN100 M2 ORAL (09:07)
[2018-10-05 11:06] VITALS: BP 135/89
== END 2018-10-05 11:09 | disposition home or self-care (01) ==
LOC: EMR 08:14
DX: M54.2 Cervicalgia (principal); N39.0 Urinary tract infection, site not specified; E11.9 Type 2 diabetes mellitus without complications; I10 Essential (primary) hypertension; M79.7 Fibromyalgia; I69.354 Hemiplegia and hemiparesis following cerebral infarction affecting left non-dominant side
CPT/HCPCS: 36415; 80053; 81003; 82962; 83690; 85025; 96361; 96374; 96376; 99284; J2270

== ENCOUNTER 2018-12-01 18:25 | Emergency (ER) | payer OTHER ==
[~2018-12-01] VITALS: Ht 152.4 cm; Wt 114.8 kg
[~2018-12-01 18:25] MED LIST changes: +ASPIR 8181 MG ORAL; +BUPROPION HCL100 M1 ORAL; +CYMBALTA30 MG ORAL; +LIDODERM700 M1 TOPIC; +NITROFURANTOIN100 M2 ORAL; +ZANTAC150 MG ORAL
--- NOTE | 2018-12-01 18:35 | NUR ---
ED Nurse Note: Pt tripped and fell on the street today around 1500, injured bilateral knee and R ankle. Pt walks with a walker. No head trauma or LOC. Pain 10/10 hussein. Applied wrap on R ankle prior to arrival. Scattering bruises noted on L knee and R lateral knee. AOx4, VSS. Will cont to monitor.
[2018-12-01 18:44] VITALS: BP 127/74
--- NOTE | 2018-12-01 19:06 | NUR ---
HAND-OFF: Report given to ILSA Cannon.
--- NOTE | 2018-12-01 20:32 | Diagnostic Imaging Report ---
EXAM: US Duplex Bilateral Lower Extremity Veins CLINICAL HISTORY: PAIN TECHNIQUE: Real-time duplex ultrasound scan of the bilateral lower extremity veins integrating B-mode two-dimensional vascular structure, Doppler spectral analysis, color flow Doppler imaging and compression. COMPARISON: No relevant prior studies available. FINDINGS: Right deep veins: Unremarkable. No DVT in the right common femoral, femoral, proximal deep femoral or popliteal veins. The veins demonstrate normal color flow, are normally compressible, with normal phasic flow and/or augmentation response. Right superficial veins: Unremarkable. No thrombus in the visualized right great saphenous vein. Left deep veins: Unremarkable. No DVT in the left common femoral, femoral, proximal deep femoral or popliteal veins. The veins demonstrate normal color flow, are normally compressible, with normal phasic flow and/or augmentation response. Left superficial veins: Unremarkable. No thrombus in the visualized left great saphenous vein. Soft tissues: No acute findings. No popliteal cyst. IMPRESSION: Normal bilateral lower extremity duplex venous ultrasound.
--- NOTE | 2018-12-01 20:45 | Diagnostic Imaging Report ---
EXAM: XR Right Ankle Complete, 3 or More Views CLINICAL HISTORY: TRAUMA TECHNIQUE: Frontal, lateral and oblique views of the right ankle. COMPARISON: No relevant prior studies available. FINDINGS: Bones/joints: No acute fracture or traumatic malalignment. Small Achilles enthesophyte and calcaneal heel spur. Soft tissues: Unremarkable. IMPRESSION: No acute findings.
--- NOTE | 2018-12-01 20:45 | Diagnostic Imaging Report ---
EXAM: XR Left Knee, 3 views CLINICAL HISTORY: TRAUMA TECHNIQUE: Three views of the left knee. COMPARISON: No relevant prior studies available. FINDINGS: Bones/joints: Tricompartment degenerative changes without evidence of acute fracture or traumatic malalignment. Soft tissues: Unremarkable. IMPRESSION: Tricompartment degenerative changes without evidence of acute fracture or traumatic malalignment.
--- NOTE | 2018-12-01 20:45 | Diagnostic Imaging Report ---
EXAM: XR Left Ankle Complete, 3 or More Views CLINICAL HISTORY: TRAUMA TECHNIQUE: Frontal, lateral and oblique views of the left ankle. COMPARISON: No relevant prior studies available. FINDINGS: Bones/joints: No acute fracture or traumatic malalignment. Degenerative changes noted about the ankle. Small calcaneal heel spur and Achilles enthesophyte. Soft tissues: Unremarkable. IMPRESSION: No acute findings.
--- NOTE | 2018-12-01 20:45 | Diagnostic Imaging Report ---
EXAM: XR Right Knee, 3 views CLINICAL HISTORY: TRAUMA TECHNIQUE: Three views of the right knee. COMPARISON: No relevant prior studies available. FINDINGS: Bones/joints: Tricompartment degenerative changes. No acute fracture or traumatic malalignment. Soft tissues: Unremarkable. IMPRESSION: Tricompartment degenerative changes. No acute fracture or traumatic malalignment.
--- NOTE | 2018-12-01 20:53 | Emergency Room Report ---
History of Present Illness General Chief Complaint: Multiple Trauma/Fall Source: Patient Present Illness HPI 63-year-old female with history of hypertension, diabetes, CVA and ME here complaining of bilateral ankle and knee pain after fall today. Patient was using her walker when she lost balance and twisted her right ankle rating the pain 7 out of 10 without radiation. Has not taken medication for pain. Denies calf tenderness, chest pain, shortness of breath, palpitation, nausea vomiting, dizziness and headache. Patient denies loss of consciousness and head injury. Patient reports that she had to strokes in 2017 and is currently on Plavix also had 3 heart attacks in 2017 and is currently under the care of denies history of DVT or pulmonary embolism. Patient is morbidly obese and is also on Latuda for fibromyalgia. Denies any tingling or numbness. Allergies: Coded Allergies: No Known Allergies (Verified Allergy, Unknown, 08/14/09) Patient History Past Medical History: see triage record Past Surgical History: none Pertinent Family History: unable to obtain Now: No Immunizations: UTD Nursing Documentation-PMH Past Medical History: No History, Except For Hx Hypertension: Yes Hx Diabetes: Yes Hx Gastrointestinal Problems: Yes - gastritis, gall bladder removal Hx Neurological Problems: Yes - Fibromyalgia Hx Cerebrovascular Accident: Yes - 2006, hemiplegia left side Review of Systems All Other Systems: negative except mentioned in HPI Physical Exam Vital Signs Date Time Temp Pulse Resp B/P (MAP) Pulse Ox O2 Delivery O2 Flow Rate FiO2 12/01/18 18:27 98.2 82 17 127/74 (91) 95 Room Air Sp02 EP Interpretation: reviewed, normal General Appearance: normal inspection, well appearing, no apparent distress, alert Head: normocephalic, atraumatic Eyes: bilateral eye normal inspection, bilateral eye PERRL ENT: normal ENT inspection, normal pharynx Neck: normal inspection, full range of motion, supple, no bony tend Respiratory: normal inspection, chest non-tender, normal breath sounds, no rhonchi, no wheezing Cardiovascular #1: normal inspection, normal peripheral pulses, regular rate, rhythm, no murmur, normal capillary refill Cardiovascular #2: 2+ dorsalis pedis (R), 2+ dorsalis pedis (L) Gastrointestinal: normal inspection, non tender, soft Rectal: deferred Genitourinary: no CVA tenderness Musculoskeletal: digits/nails normal, non-tender, no calf tenderness, swelling - Bilateral oncology and release Neurologic: normal inspection, alert, oriented x3 Psychiatric: normal inspection, judgement/insight normal, memory normal Skin: normal color, other - Minor ecchymosis of bilateral ankles Lymphatic: normal inspection, no adenopathy Medical Decision Making PA Attestation All my diagnosis and treatment plans were reviewed ad discussed with my supervising physician Dr. Ramirez Diagnostic Impression: Primary Impression: Ankle sprain Additional Impression: Knee contusion ER Course 63-year-old female with history of hypertension, diabetes, CVA and ME here complaining of bilateral ankle and knee pain after fall today. Patient was using her walker when she lost balance and twisted her right ankle rating the pain 7 out of 10 without radiation. Has not taken medication for pain. Denies calf tenderness, chest pain, shortness of breath, palpitation, nausea vomiting, dizziness and headache. Patient denies loss of consciousness and head injury. Patient reports that she had to strokes in 2017 and is currently on Plavix also had 3 heart attacks in 2017 and is currently under the care of denies history of DVT or pulmonary embolism. Patient is morbidly obese and is also on Latuda for fibromyalgia. Denies any tingling or numbness. Ddx considered but are not limited to: ankle sprain, ankle strain, ankle fracture, ankle contusion , knee sprain versus contusion versus fracture versus strain, DVT Vital signs: are WNL, pt. is afebrile H&PE are most consistent with: Bilateral knee contusion and right ankle sprain ORDERS: Ankle x-ray, knee x-ray, venous duplex ultrasound, Tylenol, Voltaren gel ED INTERVENTIONS: Derrek wrap, Tylenol DISCHARGE: At this time pt. is stable for d/c to home. Will provide printed patient care instructions, and any necessary prescriptions. Care plan and follow up instructions have been discussed with the patient prior to discharge. At this time patient is negative for DVT due to her history she was high risk for developing well however if negative patient return to the emergency room if chest pain shortness of breath follow-up with her primary care provider for referral to physical therapy use walker at all times Other X-Ray Diagnostic Results Other X-Ray Diagnostic Results #1: X-Ray ordered: Right ankle # of Views/Limited Vs Complete: 2 View Indication: Pain EP Interpretation: Yes PA Xray: Interpretation reviewed, by supervising , and agrees with findings. Interpretation: no dislocation, no soft tissue swelling, no fractures Impression: No acute disease Electronically Signed by: mara CULP Scribe Text FINDINGS: Bones/joints: No acute fracture or traumatic malalignment. Small Achilles enthesophyte and calcaneal heel spur. Soft tissues: Unremarkable. IMPRESSION: No acute findings. Other X-Ray Diagnostic Results #2: X-Ray ordered: Left ankle # of Views/Limited Vs Complete: 2 View Indication: Pain EP Interpretation: Yes PA Xray: Interpretation reviewed, by supervising MD, and agrees with findings. Interpretation: no dislocation, no soft tissue swelling, no fractures Impression: No acute disease Electronically Signed by: mara CULP Scribe Text FINDINGS: Bones/joints: No acute fracture or traumatic malalignment. Degenerative changes noted about the ankle. Small calcaneal heel spur and Achilles enthesophyte. Soft tissues: Unremarkable. IMPRESSION: No acute findings. Other X-Ray Diagnostic Results #3: X-Ray ordered: Right knee # of Views/Limited Vs Complete: 2 View Indication: Pain EP Interpretation: Yes PA Xray: Interpretation reviewed, by supervising MD, and agrees with findings. Interpretation: no dislocation, no soft tissue swelling, no fractures Impression: No acute disease Electronically Signed by: mara CULP Scribe Text FINDINGS: Bones/joints: Tricompartment degenerative changes. No acute fracture or traumatic malalignment. Soft tissues: Unremarkable. IMPRESSION: Tricompartment degenerative changes. No acute fracture or traumatic malalignment. Other X-Ray Diagnostic Results #4: X-Ray ordered: Left knee # of Views/Limited Vs Complete: 2 View Indication: Pain EP Interpretation: Yes PA Xray: Interpretation reviewed, by supervising MD, and agrees with findings. Interpretation: no dislocation, no soft tissue swelling, no fractures Impression: No acute disease Electronically Signed by: mara CULP Scribe Text FINDINGS: Bones/joints: Tricompartment degenerative changes without evidence of acute fracture or traumatic malalignment. Soft tissues: Unremarkable. IMPRESSION: Tricompartment degenerative changes without evidence of acute fracture or traumatic malalignment. CT/MRI/US Diagnostic Results CT/MRI/US Diagnostic Results : Imaging Test Ordered: roxy Duplex Bilateral lower extermities Impression FINDINGS: Right deep veins: Unremarkable. No DVT in the right common femoral, femoral, proximal deep femoral or popliteal veins. The veins demonstrate normal color flow, are normally compressible, with normal phasic flow and/or augmentation response. Right superficial veins: Unremarkable. No thrombus in the visualized right great saphenous vein. Left deep veins: Unremarkable. No DVT in the left common femoral, femoral, proximal deep femoral or popliteal veins. The veins demonstrate normal color flow, are normally compressible, with normal phasic flow and/or augmentation response. Left superficial veins: Unremarkable. No thrombus in the visualized left great saphenous vein. Soft tissues: No acute findings. No popliteal cyst. IMPRESSION: Normal bilateral lower extremity duplex venous ultrasound. Last Vital Signs Date Time Temp Pulse Resp B/P (MAP) Pulse Ox O2 Delivery O2 Flow Rate FiO2 12/01/18 20:41 98.2 12/01/18 18:44 82 17 127/74 95 Room Air Disposition: HOME, SELF-CARE Condition: Stable Scripts Diclofenac Sodium (VOLTAREN) 100 Gm Gel..gram. 2 GM TP TID, #100 GM Prov: Mara Diaz 12/01/18 Acetaminophen* (TYLENOL EXTRA STRENGTH*) 500 Mg Tablet 500 MG ORAL Q6H PRN for Mild Pain/Temp > 100.5, #30 TAB 0 Refills Prov: Mara Diaz 12/01/18 Referrals: NON PHYSICIAN (PCP) Patient Instructions: Ankle Sprain, [id number], Knee Pain, [id number] Additional Instructions: Take medication as directed follow-up with your primary care provider alternate between icing and heating the affected area physical therapy will help you Mara Diaz Dec 01, 2018 20:53
[2018-12-01] MEDS ORDERED: VOLTAREN100 G1 TP (20:55)
[2018-12-01] MEDS ORDERED: TYLENOL EXTRA500 MG ORAL (20:55)
[2018-12-01 21:25] VITALS: BP 132/72
--- NOTE | 2018-12-01 21:37 | NUR ---
ER Nurse Note: Pt seen, treated, medically cleared for discharge by ERMD. Discharge instuctions and prescriptions given with repeat verbalization by pt. Emphasized to follow up with primay care provider. All orders completed per ERMD orders. Pt a&ox4, VSS, no signs of distress. RT ankle wrapped, ice pack provided. ID band removed. Pt left with all belongings, left with own transportation.
== END 2018-12-01 21:25 | disposition home or self-care (01) ==
LOC: EMR 18:40
DX: M25.571 Pain in right ankle and joints of right foot (principal); S93.401A Sprain of unspecified ligament of right ankle, initial encounter; S80.02XA Contusion of left knee, initial encounter; S80.01XA Contusion of right knee, initial encounter; X50.1XXA Overexertion from prolonged static or awkward postures, initial encounter; Y92.9 Unspecified place or not applicable; E11.9 Type 2 diabetes mellitus without complications; I10 Essential (primary) hypertension; M79.7 Fibromyalgia; G81.94 Hemiplegia, unspecified affecting left nondominant side; Z90.49 Acquired absence of other specified parts of digestive tract; I25.2 Old myocardial infarction
CPT/HCPCS: 93970; 99284

== ENCOUNTER 2019-04-02 10:28 | Outpatient (CLI) | payer MEDICAID ==
[~2019-04-02] VITALS: Ht 152.4 cm; Wt 114.8 kg
[~2019-04-02 10:28] MED LIST changes: +TYLENOL EXTRA500 MG ORAL; +VOLTAREN100 G1 TP
[2019-04-02] MEDS ORDERED: ADMELOG SUBQ (13:53)
[2019-04-02] MEDS ORDERED: AMBIEN10 M1 ORAL (13:53)
[2019-04-02] MEDS ORDERED: MIRALAX17 G2 ORAL (13:53)
[2019-04-02] MEDS ORDERED: TRULICITY0.75 MG/0. SQ (13:53)
[2019-04-02] MEDS ORDERED: NITRO0.4 SL (13:53)
[2019-04-02] MEDS ORDERED: ATORVASTATIN CA40 MG ORAL (13:53)
[2019-04-02] MEDS ORDERED: Glargine SUBQ (13:53)
[2019-04-02] MEDS ORDERED: IBUPROFEN600 MG ORAL (13:53)
[2019-04-02] MEDS ORDERED: CLOPIDOGREL75 MG ORAL (13:53)
[2019-04-02] MEDS ORDERED: COLACE100 MG ORAL (13:53)
[2019-04-02 13:59] VITALS: BP 113/70
--- NOTE | 2019-04-02 18:15 | Consultation ---
DATE OF CONSULTATION: 04/02/2019 HISTORY: Complained of abdominal pain, on and off diarrhea, and constipation. PAST MEDICAL HISTORY: 1. Sleep apnea. 2. CVA. 3. Gallstones. 4. Hypertension. 5. Diabetes. 6. Depression. 7. Kidney stones. 8. GERD. 9. Coronary artery disease. PAST SURGICAL HISTORY: Appendectomy, hysterectomy, bowel resection, and cholecystectomy. MEDICATIONS: Please see medication reconciliation list. ALLERGIES: No known drug allergy. FAMILY HISTORY: No family history of GI malignancies. SOCIAL HISTORY: The patient denies any tobacco, alcohol, or drug abuse. REVIEW OF SYSTEMS: Positive for many things including abdominal pain, GERD, diarrhea and again constipation, nausea, and bloating. Her last colonoscopy in 2018. ASSESSMENT AND PLAN: This is a 63-year-old female with numerous medical problems. She has a lots of medication. She is taking NSAIDs. She is taking diclofenac. She is obese. She has diabetes for over 15 years and I explained to her these are all the medication she is taking and the diabetes for 15 years combination with liver gastroparesis, but we explains the nausea, the diarrhea, and constipation cyclic can be from the medications or can be simply from the irritable bowel syndrome. At this time, I reassured her there is no alarming sign and symptoms including weight loss or bleeding. She already had a colonoscopy in 2018 and endoscopy at the same time according to her, so we are not going to schedule that. I recommended her to lose weight, to exercise especially water exercises like walking in the water. I have . She is going to see a pier master next week, so we recommended to have a tight blood sugar control so the nausea from gastroparesis gets better. We also gave her 1 tab a day for probiotics and have her come back in 2 months for followup. Davon Rubio M.D. DR: CRISTOPHER JOB#: [id number] CC:
== END 2019-04-02 12:28 | disposition home or self-care (01) ==
LOC: PAN 10:28
DX: R10.9 Unspecified abdominal pain (principal); R19.7 Diarrhea, unspecified; K59.00 Constipation, unspecified; G47.30 Sleep apnea, unspecified; Z86.73 Personal history of transient ischemic attack (TIA), and cerebral infarction without residual deficits; I11.9 Hypertensive heart disease without heart failure; I25.10 Atherosclerotic heart disease of native coronary artery without angina pectoris; K21.9 Gastro-esophageal reflux disease without esophagitis; Z87.442 Personal history of urinary calculi; F32.9 Major depressive disorder, single episode, unspecified; E11.9 Type 2 diabetes mellitus without complications; Z90.89 Acquired absence of other organs; Z90.710 Acquired absence of both cervix and uterus; Z90.49 Acquired absence of other specified parts of digestive tract; E66.9 Obesity, unspecified
CPT/HCPCS: G0463

== ENCOUNTER 2019-04-29 18:27 | Emergency (ER) | payer MEDICAID, OTHER ==
[~2019-04-29] VITALS: Ht 152.4 cm; Wt 114.8 kg
[~2019-04-29 18:27] MED LIST changes: +ADMELOG SUBQ; +AMBIEN10 M1 ORAL; +ATORVASTATIN CA40 MG ORAL; +CLOPIDOGREL75 MG ORAL; +COLACE100 MG ORAL; +Glargine SUBQ; +IBUPROFEN600 MG ORAL; +MIRALAX17 G2 ORAL; +NITRO0.4 SL; +TRULICITY0.75 MG/0. SQ
--- NOTE | 2019-04-29 18:50 | NUR ---
ED Nurse Note: Patient came to the ED complaining of falling on her left hip last Monday, pain currently 10/10. Patient did not hit her head or lose consciousness. Patient currently resting in bed.
--- NOTE | 2019-04-29 19:29 | NUR ---
HAND-OFF: Report given to Teofilo ROSENBAUM.
--- NOTE | 2019-04-29 19:30 | NUR ---
ED Nurse Note: Patient at ultrasound right now. will continue to monitor
--- NOTE | 2019-04-29 19:55 | Diagnostic Imaging Report ---
Indication: Trauma, left hip pain status post fall, 10 out of 10 Technique: Noncontrast spiral acquisitions obtained through the pelvis and left hip Multiplanar reconstructions were generated. Total dose length product 1777 mGycm. CTDIvol(s) 52 mGy. Radiation dose was minimized using automated exposure control Comparison: Abdomen pelvis CT dated 08/23/2017 Findings: There is no evidence of left hip fracture demonstrated. No evidence of pelvic fracture. The sacrum appears intact. The right hip and pelvis appear unremarkable. There are degenerative changes of the lumbosacral junction. No significant contusion demonstrated. There is evidence of prior hysterectomy. The included pelvic viscera are otherwise unremarkable. Bilateral buttock injection granulomata are noted Impression: No acute abnormality. Incidental findings as noted This agrees with the preliminary interpretation provided overnight by [facility] service. The CT scanner at [facility] is accredited by the [employer] and the scans are performed using protocols designed to limit radiation exposure to as low as reasonably achievable to attain images of sufficient resolution adequate for diagnostic evaluation.
--- NOTE | 2019-04-29 20:02 | Emergency Room Report ---
History of Present Illness General Chief Complaint: Lower Extremity Injury Source: Patient Present Illness HPI 63-year-old female with history of type 2 diabetes and insulin-dependent as well as history of CVA currently on Plavix and aspirin, and, with no new onset of unilateral or generalized weakness here complaining of left hip and thigh pain after falling 1 week ago. Patient denies any head injury or loss of consciousness. Reports that she lost her balance using her walker and landed on her left hip and left thigh. Rating her pain 10 out of 10 with radiation no calf tenderness is noted. Patient denies tingling. Not taken medication for symptom relief. Denies chest pain, shortness of breath, palpitation, abdominal pain, nausea vomiting, headache and dizziness. Allergies: Coded Allergies: No Known Allergies (Verified Allergy, Unknown, 08/14/09) Patient History Past Medical History: see triage record Past Surgical History: unable to obtain Pertinent Family History: none Now: No Immunizations: UTD Reviewed Nursing Documentation: PMH: Agreed; PSxH: Agreed Nursing Documentation-PMH Past Medical History: No History, Except For Hx Cardiac Problems: Yes Hx Hypertension: Yes Hx Diabetes: Yes Hx Cancer: No Hx Gastrointestinal Problems: Yes - gastritis, gall bladder removal Hx Neurological Problems: Yes Hx Cerebrovascular Accident: Yes Review of Systems All Other Systems: negative except mentioned in HPI Physical Exam Vital Signs Date Time Temp Pulse Resp B/P (MAP) Pulse Ox O2 Delivery O2 Flow Rate FiO2 04/29/19 18:42 98.1 76 17 97 Room Air Sp02 EP Interpretation: reviewed, normal General Appearance: no apparent distress, alert, GCS 15, non-toxic, obese - morbid obesity Head: normocephalic, atraumatic Eyes: bilateral eye normal inspection, bilateral eye PERRL ENT: hearing grossly normal, normal pharynx, no angioedema, normal voice Neck: full range of motion, supple/symm/no masses Respiratory: chest non-tender, lungs clear, normal breath sounds, no rhonchi, no respiratory distress, no wheezing, speaking full sentences Cardiovascular #1: regular rate, rhythm, no edema, no murmur, normal capillary refill Cardiovascular #2: 2+ femoral (R), 2+ femoral (L), 2+ dorsalis pedis (R), 2+ dorsalis pedis (L) Gastrointestinal: normal bowel sounds, non tender, soft, non-distended, no guarding, no rebound Rectal: deferred Musculoskeletal: back normal, normal range of motion, digits/nails normal, no calf tenderness, pelvis stable, gait/station normal, non-tender Neurologic: alert, motor strength/tone normal, oriented x3, sensory intact, responsive, speech normal Psychiatric: normal inspection, judgement/insight normal Skin: no rash Lymphatic: no adenopathy Medical Decision Making PA Attestation All my diagnosis and treatment plans were reviewed ad discussed with my supervising physician Dr. Hall Diagnostic Impression: Primary Impression: Contusion of left hip and thigh ER Course 63-year-old female with history of type 2 diabetes and insulin-dependent as well as history of CVA currently on Plavix and aspirin, and, with no new onset of unilateral or generalized weakness here complaining of left hip and thigh pain after falling 1 week ago. Patient denies any head injury or loss of consciousness. Reports that she lost her balance using her walker and landed on her left hip and left thigh. Rating her pain 10 out of 10 with radiation no calf tenderness is noted. Patient denies tingling. Not taken medication for symptom relief. Denies chest pain, shortness of breath, palpitation, abdominal pain, nausea vomiting, headache and dizziness. Ddx considered but are not limited to: Fracture, contusion, hip sprain, left thigh fracture versus contusion versus sprain, DVT Vital signs: are WNL, pt. is afebrile H&PE are most consistent with: Contusion of left hip and thigh ORDERS: Left-sided CT scan, left femur x-ray, venous duplex ultrasound of the left lower extremity, Tylenol, lidocaine patch ER intervention: none DISCHARGE: At this time pt. is stable for d/c to home. Will provide printed patient care instructions, and any necessary prescriptions. Care plan and follow up instructions have been discussed with the patient prior to discharge. Patient to follow-up with primary care provider as well as physical therapist. Cannot take anything within the ibuprofen family due to being on any blood thinners. Also no signs of generalized or unilateral weaknesses are noted, patient is ambulating with a cane was reported has been doing so since her stroke. Patient is not currently having a TIA or CVA. Other X-Ray Diagnostic Results Other X-Ray Diagnostic Results : X-Ray ordered: left femur # of Views/Limited Vs Complete: 2 View Indication: Pain EP Interpretation: Yes SUNI Xray: Interpretation reviewed, by supervising MD, and agrees with findings. Interpretation: no dislocation, no soft tissue swelling, no fractures Impression: No acute disease Electronically Signed by: Mara Walters PA-C CT/MRI/US Diagnostic Results CT/MRI/US Diagnostic Results : Imaging Test Ordered: left hip CT no contrast( last creatinine was 1.6) Impression - Bilateral buttock injection granulomas. -Bilateral small fat-containing indirect inguinal hernias. -Hysterectomy. - Age-related degenerative spine findings. Last Vital Signs Date Time Temp Pulse Resp B/P (MAP) Pulse Ox O2 Delivery O2 Flow Rate FiO2 04/29/19 18:42 98.1 76 17 97 Room Air Disposition: HOME, SELF-CARE Condition: Stable Scripts Lidocaine Patch* (Lidoderm Patch*) 1 Each Adh..patch 1 PATCH TOPIC DAILY, #7 PATCH 0 Refills Patch(es) may remain in place for up to 12 hours in any 24-hour period. Prov: Mara Diaz 04/29/19 Acetaminophen (Acetaminophen 8 Hour) 650 Mg Tablet.er 650 MG ORAL Q6H, #30 TAB Prov: Mara Diaz 04/29/19 Referrals: [facility]ERR[facility] (PCP) Patient Instructions: Contusion, Hip Pain Additional Instructions: Take medication as directed, follow-up with your primary care provider, if worsening symptoms return to the emergency room Mara Diaz Apr 29, 2019 20:02
[2019-04-29] MEDS ORDERED: ACETAMINOPHEN650 M2 ORAL (20:04)
[2019-04-29] MEDS ORDERED: LIDODERM700 M1 TOPIC (20:04)
--- NOTE | 2019-04-29 20:23 | NUR ---
ED Nurse Note: pt is cleared to be d/c per ER provider, pt discharge and aftercare instruction w/ prescription provided, pt education done via discussion and handout, pt advised to follow up with pcp or return to ED if changes in condition, pt verbalized understanding and agrees with plan, vss, ambulatory w/ steady gait w/cane, left w/ all belongings.
[2019-04-29 20:24] VITALS: BP 132/68
--- NOTE | 2019-04-30 12:46 | Diagnostic Imaging Report ---
Indication: Left leg pain Technique: Grayscale and duplex images of the left lower extremity veins. Comparison: 12/01/2018 Findings: Grayscale and duplex images demonstrate no evidence of intraluminal thrombus. Normal phasic Doppler waveforms, demonstrating normal augmentation response and no evidence of valvular insufficiency. Normal compressibility. No significant interim change Impression: Negative for left lower extremity deep venous thrombosis
--- NOTE | 2019-04-30 12:47 | Diagnostic Imaging Report ---
Indications: Trauma, pain, status post fall Technique: Two views of the left femur Comparison: None Findings: No acute fractures. No dislocations. The joint spaces are preserved Impression: Negative
== END 2019-04-29 20:24 | disposition home or self-care (01) ==
LOC: EMR 19:15
DX: S70.02XA Contusion of left hip, initial encounter (principal); S70.12XA Contusion of left thigh, initial encounter; W19.XXXA Unspecified fall, initial encounter; Y92.9 Unspecified place or not applicable; I10 Essential (primary) hypertension; E11.9 Type 2 diabetes mellitus without complications; Z90.49 Acquired absence of other specified parts of digestive tract; Z86.73 Personal history of transient ischemic attack (TIA), and cerebral infarction without residual deficits; Z79.82 Long term (current) use of aspirin; Z79.02 Long term (current) use of antithrombotics/antiplatelets; E66.01 Morbid (severe) obesity due to excess calories; Z90.710 Acquired absence of both cervix and uterus; K40.90 Unilateral inguinal hernia, without obstruction or gangrene, not specified as recurrent
CPT/HCPCS: 73552; 73700; 93971; Z7502; 99284

== ENCOUNTER 2020-03-04 14:10 | Outpatient (CLI) | payer MEDICAID ==
[~2020-03-04 14:10] MED LIST changes: +ACETAMINOPHEN650 M2 ORAL
--- NOTE | 2020-03-04 14:32 | General Progress Note ---
Subjective ROS Limited/Unobtainable: Yes Allergies: Coded Allergies: No Known Allergies (Verified Allergy, Unknown, 08/14/09) Objective General Appearance: alert EENT: PERRL/EOMI Neck: normal alignment Cardiovascular: normal rate Respiratory/Chest: lungs clear Abdomen: normal bowel sounds, non tender, soft Extremities: non-tender Assessment/Plan Assessment/Plan: 1. Sleep apnea. 2. CVA. 3. Gallstones. 4. Hypertension. 5. Diabetes. 6. Depression. 7. Kidney stones. 8. GERD. 9. Coronary artery disease. recent EGD and colonoscopy at [facility] now with gastroparesis on reglan 5 mg tight blood sugar control wt loss RTC prn Davon Rubio MD Mar 04, 2020 14:32
== END 2020-03-04 16:10 | disposition home or self-care (01) ==
LOC: PAN 14:10
DX: K21.9 Gastro-esophageal reflux disease without esophagitis (principal); G47.30 Sleep apnea, unspecified; Z86.73 Personal history of transient ischemic attack (TIA), and cerebral infarction without residual deficits; K80.80 Other cholelithiasis without obstruction; E11.9 Type 2 diabetes mellitus without complications; F32.9 Major depressive disorder, single episode, unspecified; I25.10 Atherosclerotic heart disease of native coronary artery without angina pectoris; I11.9 Hypertensive heart disease without heart failure; R63.4 Abnormal weight loss
CPT/HCPCS: 99212

== ENCOUNTER 2020-04-06 12:33 | Outpatient (CLI) | payer MEDICAID ==
[2020-04-06 12:36] VITALS: BP 135/78
[2020-04-06] MEDS ORDERED: INSULIN GLARGINE SUBQ (12:42)
[2020-04-06] MEDS ORDERED: NORCO 5-325 TA1 EAC1 ORAL (12:42)
--- NOTE | 2020-04-06 15:14 | General Progress Note ---
Subjective ROS Limited/Unobtainable: Yes Allergies: Coded Allergies: No Known Allergies (Verified Allergy, Unknown, 08/14/09) Objective Last 24 Hour Vital Signs Date Time Temp Pulse Resp B/P (MAP) Pulse Ox O2 Delivery O2 Flow Rate FiO2 04/06/20 12:36 97.6 88 16 135/78 98 General Appearance: alert EENT: PERRL/EOMI Neck: supple Cardiovascular: normal rate Respiratory/Chest: lungs clear Abdomen: hypoactive bowel sounds, tender Extremities: non-tender Assessment/Plan Assessment/Plan: Assessment/Plan Assessment/Plan: 1. Sleep apnea. 2. CVA. 3. Gallstones. 4. Hypertension. 5. Diabetes. 6. Depression. 7. Kidney stones. 8. GERD. 9. Coronary artery disease. recent EGD and colonoscopy at [facility] now with gastroparesis recent hospital admission for ? SBO without surg tight blood sugar control wt loss add reglan add augmentin RTC prn Davon Rubio MD Apr 06, 2020 15:14
== END 2020-04-06 14:33 | disposition home or self-care (01) ==
LOC: PAN 12:33
DX: K31.84 Gastroparesis (principal); G47.30 Sleep apnea, unspecified; I63.9 Cerebral infarction, unspecified; K80.80 Other cholelithiasis without obstruction; I10 Essential (primary) hypertension; E11.9 Type 2 diabetes mellitus without complications; F32.9 Major depressive disorder, single episode, unspecified; Z87.442 Personal history of urinary calculi; K21.9 Gastro-esophageal reflux disease without esophagitis; I25.10 Atherosclerotic heart disease of native coronary artery without angina pectoris; R63.4 Abnormal weight loss
CPT/HCPCS: 99212

== ENCOUNTER 2020-05-04 13:35 | Outpatient (CLI) | payer MEDICAID ==
[~2020-05-04 13:35] MED LIST changes: +INSULIN GLARGINE SUBQ
--- NOTE | 2020-05-04 14:07 | General Progress Note ---
Subjective ROS Limited/Unobtainable: Yes Allergies: Coded Allergies: No Known Allergies (Verified Allergy, Unknown, 08/14/09) Objective General Appearance: alert EENT: normal ENT inspection Neck: supple Cardiovascular: normal rate Respiratory/Chest: lungs clear Abdomen: soft, hypoactive bowel sounds, tender Extremities: non-tender Assessment/Plan Assessment/Plan: Assessment/Plan Assessment/Plan: 1. Sleep apnea. 2. CVA. 3. Gallstones.>>s/p negro 4. Hypertension. 5. Diabetes. 6. Depression. 7. Kidney stones. 8. GERD. 9. Coronary artery disease. 10. fatty liver 11. diverticulosis>>? chronic mild diverticulitis and pain 12. recent SBO recent EGD and colonoscopy at [facility] tight blood sugar control wt loss add Xifaxan pending possible gastric sleeve RTC prn Davon Rubio MD May 04, 2020 14:06
== END 2020-05-04 15:35 | disposition home or self-care (01) ==
LOC: PAN 13:35
DX: K21.9 Gastro-esophageal reflux disease without esophagitis (principal); G47.30 Sleep apnea, unspecified; Z86.73 Personal history of transient ischemic attack (TIA), and cerebral infarction without residual deficits; Z90.49 Acquired absence of other specified parts of digestive tract; I11.9 Hypertensive heart disease without heart failure; I25.10 Atherosclerotic heart disease of native coronary artery without angina pectoris; E11.9 Type 2 diabetes mellitus without complications; F32.9 Major depressive disorder, single episode, unspecified; Z87.442 Personal history of urinary calculi; K76.0 Fatty (change of) liver, not elsewhere classified; K57.92 Diverticulitis of intestine, part unspecified, without perforation or abscess without bleeding; R63.4 Abnormal weight loss
CPT/HCPCS: 99212